=== PATIENT | male | born 1960 | race Caucasian/White ===

== ENCOUNTER 2018-09-13 04:32 | Emergency (ER) | payer OTHER ==
[~2018-09-13] VITALS: Ht 177.8 cm; Wt 79.8 kg
[2018-09-13 04:38] VITALS: Ht 177.8 cm; Wt 79.8 kg
[2018-09-13 05:48] VITALS: BP 127/87
== END 2018-09-13 05:48 | disposition home or self-care (01) ==
LOC: ED 04:32
DX: S93.402A Sprain of unspecified ligament of left ankle, initial encounter (principal); S90.32XA Contusion of left foot, initial encounter; K21.9 Gastro-esophageal reflux disease without esophagitis; W11.XXXA Fall on and from ladder, initial encounter; Y93.89 Activity, other specified; Y92.89 Other specified places as the place of occurrence of the external cause; Y99.8 Other external cause status
CPT/HCPCS: J1885

== ENCOUNTER 2019-02-20 20:05 | Emergency (ER) | payer OTHER ==
[~2019-02-20] VITALS: Ht 175.3 cm; Wt 83.5 kg
[2019-02-20 20:12] VITALS: Ht 175.3 cm; Wt 83.5 kg
[2019-02-20 21:22] LABS: BASOPHIL % 0.7 % (0-2); PLATELET COUNT 183 x10^3mcL (130-400); RED CELL DISTRIBUTION WIDTH 13.4 % (11.5-14.5)
[2019-02-20 21:36] LABS: CALCIUM 8.6 mg/dL (8.5-10.1); CARBON DIOXIDE 29.8 mmol/L (21-32); CHLORIDE SERUM 103 mmol/L (98-107); CREATININE SERUM 0.8 mg/dL (0.7-1.3); GFR1 > 60 mL/min; GLUCOSE SERUM 97 mg/dL (74-106); POTASSIUM SERUM 4.1 mmol/L (3.5-5.1); SODIUM SERUM 138 mmol/L (136-145)
[2019-02-20 21:40] LABS: ALBUMIN 3.5 g/dL (3.4-5.0); ALKALINE PHOSPHATASE 65 U/L (46-116); ALT/SGPT 29 U/L (16-63); AST/SGOT 24 U/L (15-37); BILIRUBIN TOTAL 0.35 mg/dL (0.20-1.00); TOTAL PROTEIN, SERUM 6.5 g/dL (6.4-8.2)
[2019-02-21 02:09] VITALS: BP 100/66
== END 2019-02-21 02:09 | disposition home or self-care (01) ==
LOC: ED 20:05
PROVIDERS: Emergency Medicine
DX: R07.89 Other chest pain (principal); K21.9 Gastro-esophageal reflux disease without esophagitis
CPT/HCPCS: 36415; 83880; 85378; Q0092